=== PATIENT | female | born 1975 | race Caucasian/White ===

== ENCOUNTER 2018-05-19 13:42 | Outpatient (CLI) | payer MEDICAID ==
--- NOTE | 2018-05-19 15:53 | ULT ---
ULTRASOUND PELVIC TRANSVAGINAL WITH DOPPLER: HISTORY: Pelvic pain. COMPARISON: None. FINDINGS: The uterus measures 11.7 x 5.7 x 7.3 cm. The endometrial thickness is 1. cm. The left ovary measures 4.2 x 3.8 x 4.2 cm with a 3.8 cm septated cyst. The right ovary is not seen. IMPRESSION: 1. Septated cyst in the left ovary for which followup ultrasound in 6 weeks is recommended. 2. Endometrial measuring to upper limits of normal from being on the measurement of 1.2-1.6 cm. POS: [facility]
== END 2018-05-19 13:43 | disposition home or self-care (01) ==
LOC: SCSULT 13:42
PROVIDERS: ATTEND Family Medicine
DX: R10.2 Pelvic and perineal pain (principal); N83.202 Unspecified ovarian cyst, left side
CPT/HCPCS: 76856

== ENCOUNTER 2018-11-30 19:34 | Emergency (ER) | payer MEDICAID, SELFPAY ==
[2018-11-30 20:24] LABS: Bilirubin Negative (Negative); Blood, Urine Trace (Negative); Clarity Clear (Clear); Glucose, Urine (Dipstick) Normal (Negative); Leukocyte Negative Leu/uL (Negative); Nitrite Negative (Negative); Protein, Urine (Dipstick) 10 mg/dL (Neg-Trace); RBC/HPF 0-3 HPF (0-3); Squamous Epithelial 0-3 HPF (0-3); Urobilinogen Normal mg/dL (Less than 2); WBC/HPF 0-3 HPF (0-3)
[2018-11-30 20:28] LABS: Bacteria/HPF 1+ HPF (None Seen)
[2018-11-30 21:31] LABS: #Basophils 0.1 thou/uL (0.0-0.2); #Eosinphils 0.2 thou/uL (0.0-0.7); #Monocytes 0.6 thou/uL (0.11-0.59); #Neutrophils 4.4 thou/uL (1.40-6.50); %Basophils 0.7 % (0.0-1.0); %Eosinophils 2.9 % (0.0-10.0); %Monocytes 8.4 % (0.0-10.0); %Neutrophils 60.1 % (42.0-75.0); Hemoglobin 12.3 g/dL (12.0-16.0); Mean Corpuscular HGB CONC 34.8 g/dL (32.0-36.0); Mean Corpuscular Volume 89.1 fL (78.0-98.0); Mean Platelet Volume 7.7 fL (7.4-10.4); Platelet Count 270 thou/uL (130-400); RBC Distribution Width 11.2 % (11.5-14.5); Red Blood Cell (RBC) Count 3.98 mill/uL (4.20-5.40); White Blood Cell (WBC) Count 7.3 thou/uL (4.8-10.8)
[2018-11-30] MEDS ORDERED: Morphine 4 MG/ML VIAL ONE (22:48)
[2018-11-30] MEDS ORDERED: Ondansetron PF 4 MG/2 ML Vial ONE (22:49)
[2018-12-01] LABS: Pregnancy Test - Urine (BHCG) Negative (Negative); Pregu Control Background? CLEAR/WHITE (CLR/WHITE); Pregu Control Bar Appear? YES (CONTROL BAR)
[2018-12-01] MEDS ORDERED: Fentanyl 100 MCG/2 ML VIAL ONE
[2018-12-01 00:01] LABS: Specific Gravity 1.026 (1.002-1.036)
[2018-12-01 01:05] LABS: BHCG - Serum Negative (NEGATIVE); Pregs Control Background? CLEAR/WHITE (CLR/WHITE); Pregs Control Bar Appear? YES (CONTROL BAR)
[2018-12-01 01:09] LABS: ALT (SGPT) 18 U/L (8-55); AST (SGOT) 23 U/L (5-34); Albumin 4.5 g/dL (3.5-5.0); Alkaline Phosphatase 55 U/L (40-150); Anion Gap 15 mmol/L (10-20); BUN (Urea Nitrogen) 19 mg/dL (7.0-18.7); Bilirubin, Total 0.3 mg/dL (0.2-1.2); Calc. Creatinine Clearance 0 mL/min (70-130); Calcium 9.6 mg/dL (7.8-10.44); Carbon Dioxide 22 mmol/L (22-29); Chloride 106 mmol/L (98-107); Estimated GFR-MDRD 62; Globulin 2.7 g/dL (2.4-3.5); Glucose 86 mg/dL (70-105); Lipase 55 U/L (8-78); Potassium 3.8 mmol/L (3.5-5.1); Protein, Total 7.2 g/dL (6.0-8.3); Sodium 139 mmol/L (136-145)
[2018-12-01] MEDS ORDERED: Ketorolac Tromethamine 30 MG/ML VIAL ONE (01:27)
--- NOTE | 2018-12-01 07:44 | ULT ---
TRANSABDOMINAL TRANSVAGINAL PELVIC ULTRASOUND: INDICATION: Concern for ovarian torsion. COMPARISON: Prior exam dated 05/19/2018. TECHNIQUE: Vallejo scale, color Doppler, and spectral Doppler images were obtained of the pelvis via a transabdomin al transvaginal approach. The left ovary was not visualized. The right ovary measured 3.8 x 2.1 x 4.1 cm and contains a 3.5 cm follicular cyst. There is normal f low through the right ovary. The uterus measures 13.9 x 5 x 7 cm and demonstrates a thickened endometrial stripe 2.2 cm. There is no appreciable free fluid. IMPRESSION: 1. Prominent endometrial stripe. This is more pronounced than seen on the comparison examination. Findings may reflect sequelae of an endometrial hyperplasia, polyposis or carcinoma. Recommend consi deration for endometrial sampling. 2. A 3.5 cm right ovarian follicular cyst. 3. Nonvisualization of the left ovary. POS: [facility]
--- NOTE | 2018-12-01 07:46 | CT ---
CT OF THE ABDOMEN AND PELVIS WITHOUT IV CONTRAST: COMPARISON: Pelvic ultrasound dated 12/01/2018. FINDINGS: Lung bases are clear. The gallbladder is surgically absent. An unopacified pancreas, liver, spleen, an adrenal glands are normal-appearing. There is a 3.5 mm stone within the inferior pole of the rig ht kidney. No ureteral calculus or hydronephrosis is demonstrated. No free fluid or enlarged lymph nodes are evident. There is a 3 cm cyst involving the right ovary. The visualized bladder, rectum, and perirectal soft tissues are unremarkable-appearing. The unopacified large and small bowel demonstrate postsurgical c hange of an appendectomy. The small bowel is of normal caliber. No free fluid is evident. No acute osseous abnormality is evident. IMPRESSION: 1. Right nephrolithiasis. No hydronephrosis or ureteral calculus demonstrated. 2. Right adnexal cyst. 3. Appendectomy and cholecystectomy. 4. Other findings as above. POS:
== END 2018-12-01 01:38 | disposition home or self-care (01) ==
LOC: ERS 19:34
DX: N83.201 Unspecified ovarian cyst, right side (principal); F41.9 Anxiety disorder, unspecified; F32.9 Major depressive disorder, single episode, unspecified
CPT/HCPCS: 36415; 74176; 76856; 80053; 81003; 81015; 81025; 83690; 84703; 85025; 86850; 86900; 86901; 87480; 87491; 87510; 87591; 87660; 96361; 96374; 96375; J1885; J2270; J2405; J3010

== ENCOUNTER 2018-12-30 12:29 | Emergency (ER) | payer OTHER, SELFPAY ==
[2018-12-30 13:43] LABS: #Eosinphils 0.1 thou/uL (0.0-0.7); #Lymphocytes 1.6 thou/uL (1.20-3.40); #Monocytes 0.7 thou/uL (0.11-0.59); #Neutrophils 5.2 thou/uL (1.40-6.50); %Basophils 0.3 % (0.0-1.0); %Lymphocytes 21.6 % (21.0-51.0); %Monocytes 8.6 % (0.0-10.0); %Neutrophils 68.5 % (42.0-75.0); Hemoglobin 12.7 g/dL (12.0-16.0); Mean Corpuscular HGB CONC 34.5 g/dL (32.0-36.0); Mean Platelet Volume 7.3 fL (7.4-10.4); Platelet Count 302 thou/uL (130-400); RBC Distribution Width 11.4 % (11.5-14.5); Red Blood Cell (RBC) Count 4.24 mill/uL (4.20-5.40); White Blood Cell (WBC) Count 7.6 thou/uL (4.8-10.8)
[2018-12-30] MEDS ORDERED: Fentanyl 100 MCG/2 ML VIAL ONE (13:46)
[2018-12-30 13:49] LABS: BHCG - Serum Negative (NEGATIVE); Pregs Control Background? CLEAR/WHITE (CLR/WHITE); Pregs Control Bar Appear? YES (CONTROL BAR)
[2018-12-30] MEDS ORDERED: Metoclopramide HCl 10 MG/2 ML VIAL ONE (13:56)
--- NOTE | 2018-12-30 15:01 | ULT ---
EXAM: Transabdominal and transvaginal pelvic ultrasound with Doppler PROVIDED CLINICAL HISTORY: Pain COMPARISON: 12/01/2018 FINDINGS: The uterus measures about 11.2 x 4.8 x 6.2 cm and demonstrates an unremarkable appearance to the uter ine myometrium. Abnormal thickening of the uterine endometrium is redemonstrated, measuring up to 2.4 cm. The left ovary is not identified. There is an equivocal 6.5 cm right adnexal mass versus right ovary with shadowing from adjacent structures. Color Doppler and spectral analysis of the structure demonstrates blood flow. There is no evidence for free pelvic fluid. IMPRESSION: 1. Abnormal thickening of the uterine endometrium is redemonstrated. [employer] [employer] consultation is recommended if not previously performed. 2. Possible right adnexal mass. Consider follow-up pelvic MRI.
== END 2018-12-30 16:15 | disposition home or self-care (01) ==
LOC: ERS 12:29
DX: N93.9 Abnormal uterine and vaginal bleeding, unspecified (principal); F41.9 Anxiety disorder, unspecified; F32.9 Major depressive disorder, single episode, unspecified; Z79.899 Other long term (current) drug therapy
CPT/HCPCS: 36415; 76856; 84703; 85025; 96365; 96375; J2765; J3010

== ENCOUNTER 2020-09-19 11:48 | Emergency (ER) | payer BC ==
[2020-09-19 12:50] LABS: #Basophils 0.1 thou/uL (0.0-0.2); #Eosinphils 0.1 thou/uL (0.0-0.7); #Monocytes 0.5 thou/uL (0.11-0.59); #Neutrophils 5.6 thou/uL (1.40-6.50); %Basophils 0.7 % (0.0-1.0); %Eosinophils 1.4 % (0.0-10.0); %Lymphocytes 23.7 % (21.0-51.0); %Monocytes 5.9 % (0.0-10.0); %Neutrophils 68.4 % (42.0-75.0); Hemoglobin 13.2 g/dL (12.0-16.0); Mean Corpuscular HGB CONC 34.9 g/dL (32.0-36.0); Mean Corpuscular Hemoglobin 31.4 pg (27.0-31.0); Mean Corpuscular Volume 89.9 fL (78.0-98.0); Mean Platelet Volume 7.7 fL (7.4-10.4); Platelet Count 271 thou/uL (130-400); RBC Distribution Width 11.4 % (11.5-14.5); Red Blood Cell (RBC) Count 4.19 mill/uL (4.20-5.40); White Blood Cell (WBC) Count 8.2 thou/uL (4.8-10.8)
[2020-09-19 13:11] LABS: ALT (SGPT) 18 U/L (8-55); AST (SGOT) 16 U/L (5-34); Albumin 4.1 g/dL (3.5-5.0); Alkaline Phosphatase 46 U/L (40-110); Anion Gap 12 mmol/L (10-20); BUN (Urea Nitrogen) 21 mg/dL (7.0-18.7); Bilirubin, Total 0.3 mg/dL (0.2-1.2); Calc. Creatinine Clearance 0 mL/min (70-130); Calcium 9.4 mg/dL (7.8-10.44); Carbon Dioxide 26 mmol/L (22-29); Chloride 104 mmol/L (98-107); Globulin 2.8 g/dL (2.4-3.5); Glucose 97 mg/dL (70-105); Potassium 4.4 mmol/L (3.5-5.1); Protein, Total 6.9 g/dL (6.0-8.3); Sodium 138 mmol/L (136-145)
[2020-09-19 14:19] LABS: BHCG - Serum Negative (NEGATIVE); Pregs Control Background? CLEAR/WHITE (CLR/WHITE); Pregs Control Bar Appear? YES (CONTROL BAR)
[2020-09-19] MEDS ORDERED: Fentanyl 100 MCG/2 ML VIAL ONE (14:51)
[2020-09-19] MEDS ORDERED: Promethazine HCl 25 MG/ML VIAL ONE (14:51)
[2020-09-19 15:08] LABS: Bilirubin Negative (Negative); Blood, Urine Negative (Negative); Glucose, Urine (Dipstick) Negative (Negative); Ketone, Urine Trace mg/dL (Negative); Leukocyte Negative (Negative); Nitrite Negative (Negative); Protein, Urine (Dipstick) Negative (Neg-Trace); Urobilinogen 0.2 mg/dL (Less than 2)
[2020-09-19 15:13] LABS: Bacteria/HPF None Seen HPF (None Seen); RBC/HPF 0-3 HPF (0-3); Squamous Epithelial 0-3 HPF (0-3); WBC/HPF 0-3 HPF (0-3)
[2020-09-19 15:15] LABS: Clarity Clear (Clear)
== END 2020-09-19 17:52 | disposition home or self-care (01) ==
LOC: ERS 11:48
DX: N83.201 Unspecified ovarian cyst, right side (principal)
CPT/HCPCS: 36415; 51701; 74176; 76856; 80053; 81003; 82274; 83690; 84484; 84703; 85025; 93005; 93976; 96365; 96375; J2550; J3010

== ENCOUNTER 2022-04-07 14:45 | Emergency (ER) | payer OTHER ==
[2022-04-07 15:38] LABS: #Eosinphils 0.2 thou/uL (0.0-0.7); #Lymphocytes 2.1 thou/uL (1.20-3.40); #Monocytes 0.6 thou/uL (0.11-0.59); #Neutrophils 3.9 thou/uL (1.40-6.50); %Basophils 0.3 % (0.0-1.0); %Lymphocytes 31.5 % (21.0-51.0); %Monocytes 8.2 % (0.0-10.0); %Neutrophils 56.9 % (42.0-75.0); Hemoglobin 12.5 g/dL (12.0-16.0); Mean Corpuscular HGB CONC 33.7 g/dL (32.0-36.0); Mean Corpuscular Hemoglobin 28.9 pg (27.0-31.0); Mean Corpuscular Volume 85.6 fl (78.0-98.0); Platelet Count 301 10x3/uL (130-400); RBC Distribution Width 14.8 % (11.5-14.5); Red Blood Cell (RBC) Count 4.34 mill/uL (4.20-5.40); White Blood Cell (WBC) Count 6.8 10x3/uL (4.8-10.8)
[2022-04-07 15:39] LABS: BHCG - Serum Negative (NEGATIVE); Pregs Control Background? CLEAR/WHITE (CLR/WHITE); Pregs Control Bar Appear? YES (CONTROL BAR)
[2022-04-07 15:50] LABS: ALT (SGPT) 87 U/L (8-55); AST (SGOT) 35 U/L (5-34); Albumin 4.4 g/dL (3.5-5.0); Alkaline Phosphatase 71 U/L (40-110); Anion Gap 15 mmol/L (10-20); BUN (Urea Nitrogen) 17 mg/dL (7.0-18.7); Bilirubin, Total 0.3 mg/dL (0.2-1.2); Calc. Creatinine Clearance 0 mL/min (70-130); Calcium 9.6 mg/dL (7.8-10.44); Carbon Dioxide 26 mmol/L (22-29); Chloride 102 mmol/L (98-107); Estimated GFR 45; Globulin 2.9 g/dL (2.4-3.5); Glucose 115 mg/dL (70-105); Potassium 3.6 mmol/L (3.5-5.1); Protein, Total 7.3 g/dL (6.0-8.3); Sodium 139 mmol/L (136-145)
[2022-04-07] MEDS ORDERED: diphenhydrAMINE 50 MG/ML VIAL ONE (17:45)
[2022-04-07] MEDS ORDERED: Metoclopramide HCl 10 MG/2 ML VIAL ONE (17:45)
[2022-04-07] MEDS ORDERED: Ketorolac Tromethamine 30 MG/ML VIAL ONE (17:45)
== END 2022-04-07 17:09 | disposition home or self-care (01) ==
LOC: ERS 14:45
DX: R51.9 Headache, unspecified (principal)
CPT/HCPCS: 36415; 70450; 80053; 84484; 84703; 85025; 93005; 96374; 96375; J1200; J1885; J2765

== ENCOUNTER 2022-11-08 19:49 | Emergency (ER) | payer OTHER, SELFPAY | END 2022-11-08 20:38 | disposition left against medical advice (07) | LOC: ERS 19:49 | DX: Z53.21 Procedure and treatment not carried out due to patient leaving prior to being seen by health care provider (principal) ==

== ENCOUNTER 2022-12-15 19:45 | Emergency (ER) | payer SELFPAY ==
[2022-12-15 20:41] LABS: #Basophils 0.1 thou/uL (0.0-0.2); #Eosinphils 0.2 thou/uL (0.0-0.7); #Monocytes 0.7 thou/uL (0.11-0.59); #Neutrophils 3.9 thou/uL (1.40-6.50); %Basophils 0.7 % (0.0-1.0); %Eosinophils 2.8 % (0.0-10.0); %Lymphocytes 32.2 % (21.0-51.0); %Monocytes 9.5 % (0.0-10.0); %Neutrophils 54.2 % (42.0-75.0); Hematocrit 42.4 % (36.0-47.0); Hemoglobin 14.4 g/dL (12.0-16.0); Mean Corpuscular Hemoglobin 29.5 pg (27.0-31.0); Mean Corpuscular Volume 86.9 fl (78.0-98.0); Mean Platelet Volume 9.8 fL (7.4-10.4); Platelet Count 280 10x3/uL (130-400); RBC Distribution Width 12.5 % (11.5-14.5); Red Blood Cell (RBC) Count 4.88 mill/uL (4.20-5.40); White Blood Cell (WBC) Count 7.1 10x3/uL (4.8-10.8)
[2022-12-15 21:03] LABS: ALT (SGPT) 61 U/L (8-55); AST (SGOT) 39 U/L (5-34); Albumin 4.7 g/dL (3.5-5.0); Alkaline Phosphatase 64 U/L (40-110); Anion Gap 16 mmol/L (10-20); BUN (Urea Nitrogen) 16 mg/dL (7.0-18.7); Bilirubin, Total 0.3 mg/dL (0.2-1.2); Calc. Creatinine Clearance 0 mL/min (70-130); Calcium 10.3 mg/dL (7.8-10.44); Carbon Dioxide 21 mmol/L (22-29); Chloride 103 mmol/L (98-107); Estimated GFR 56; Globulin 3.3 g/dL (2.4-3.5); Glucose 95 mg/dL (70-105); Potassium 3.2 mmol/L (3.5-5.1); Sodium 137 mmol/L (136-145)
[2022-12-15 21:24] LABS: Troponin I Less than 0.010 ng/mL (< 0.028)
[2022-12-15 21:44] LABS: SARS-CoV-2 NAA Rapid Test Not Detected (NotDetected)
[2022-12-15 21:56] LABS: Bacteria/HPF None Seen HPF (None Seen); Bilirubin Negative (Negative); Blood, Urine Negative (Negative); CAUTI Indications for Culture Pelvic or flank pain; Clarity Clear (Clear); Glucose, Urine (Dipstick) Normal (Negative); Ketone, Urine Negative (Negative); Leukocyte Negative Leu/uL (Negative); Nitrite Negative (Negative); Protein, Urine (Dipstick) Negative (Neg-Trace); RBC/HPF None Seen HPF (0-3); Specific Gravity, Urine 1.008 (1.002-1.036); Squamous Epithelial None Seen HPF (0-3); Urobilinogen Normal mg/dL (Less than 2); WBC/HPF 0-3 HPF (0-3); pH, Urine 5.5 (5.0-9.0)
[2022-12-15 21:58] LABS: Acetaminophen Less than 10 mcg/mL (10.0-30.0); Alcohol Less than 10.0 mg/dL (Less than 10); Lipase 91 U/L (8-78); Salicylate Less than 8.0 mg/dL (15.0-30.0)
[2022-12-15 22:01] LABS: Urine Culture Reflex No No
[2022-12-15 22:04] LABS: Amphetamine Not Detected (NotDetected); Barbiturates Screen Not Detected (NotDetected); Benzodiazepine Screen Not Detected (NotDetected); Cocaine Metabolite Screen Not Detected (NotDetected); Methadone Not Detected (NotDetected); Methamphetamine Not Detected (NotDetected); Opiate Screen Not Detected (NotDetected); Oxycodone Screen Not Detected (NotDetected); Phencyclidine (PCP) Not Detected (NotDetected); THC/Cannabinoid Screen Detected (NotDetected); Tricyclic Screen Not Detected (NotDetected)
[2022-12-15] MEDS ORDERED: Potassium Chloride 20 MEQ TAB ONE (22:10)
[2022-12-15] MEDS ORDERED: Acetaminophen 500 MG TAB ONE (22:23)
== END 2022-12-15 23:45 | disposition home or self-care (01) ==
LOC: ERS 19:45
DX: R00.2 Palpitations (principal); E87.6 Hypokalemia; E86.0 Dehydration; F12.19 Cannabis abuse with unspecified cannabis-induced disorder; K21.9 Gastro-esophageal reflux disease without esophagitis; Z86.73 Personal history of transient ischemic attack (TIA), and cerebral infarction without residual deficits
CPT/HCPCS: 36415; 71045; 80053; 80306; 80307; 81001; 83690; 84443; 84484; 85025; 93005; 96360; 96361